=== PATIENT | female | born 1980 | race Caucasian/White ===

== ENCOUNTER 2018-05-08 11:30 | Emergency (ER) | payer OTHER ==
[~2018-05-08] VITALS: Ht 177.8 cm; Wt 100.2 kg
[2018-05-08 11:38] VITALS: BP 117/60; Ht 177.8 cm; Wt 100.2 kg
== END 2018-05-08 14:25 | disposition home or self-care (01) ==
LOC: ED 11:30
DX: J02.9 Acute pharyngitis, unspecified (principal); M25.572 Pain in left ankle and joints of left foot; F17.210 Nicotine dependence, cigarettes, uncomplicated; Z71.6 Tobacco abuse counseling
CPT/HCPCS: 99406